=== PATIENT | male | born 1990 | race Caucasian/White ===

== ENCOUNTER 2021-01-15 23:37 | Emergency (ER) | payer OTHER, SELFPAY ==
[2021-01-15 23:38] VITALS: BP 131/43; PULSE 77; RESP 16; TEMP 36.6; O2SAT 97; BMI 24.3
--- NOTE | 2021-01-16 00:44 | ED.MALEGU ---
HPI - Male Genitourinary General Chief complaint: Urogenital-Female Stated complaint: etoh Time Seen by Provider: 01/16/21 00:44 Source: patient Mode of arrival: ambulatory History of Present Illness HPI Narrative: 30-year-old male who presents via EMS after he called at the behest of his . He states he drink 4 beers earlier in the evening and that he told his that he was having some difficulty with urination. Patient states that this has happened before and that it is ?no big deal?. He denies any penile discharge and continues to states that he does not think that is any big problem. He denies any fevers or chills. Related Data Allergies Allergy/AdvReac Type Severity Reaction Status Date / Time No Known Allergies Allergy Verified 01/15/21 23:40 Review of Systems Review of Systems: Urine positives and negatives as stated in HPI 10 point review systems is otherwise negative. PMFSH Past Medical History Source: nursing notes reviewed Medical History No active medical problems Social History Social History Advance Directives: No Advance Directives Information Provided: No Physical Exam Vital Signs: Vital Signs: Last Vital Signs Temp 97.9 F 01/15/21 23:38 Pulse 77 01/15/21 23:38 Resp 16 01/15/21 23:38 BP 131/43 L 01/15/21 23:38 Pulse Ox 97 01/15/21 23:38 Body Mass Index 24.3 VITAL SIGNS: Reviewed. GENERAL: Well developed, well nourished, in no acute distress. HEAD: Normocephalic/atraumatic EYES: PERRLA, EOMI OROPHARYNX: no oral lesions noted, posterior pharynx clear LUNGS: Normal breath sounds. SpO2<97> CARDIOVASCULAR: Regular rate and rhythm without noted murmurs ABDOMEN: Soft, non-tender, non-distended with bowel sounds. NEUROLOGIC: Alert and oriented x 4. Course Course Course Narrative: 30-year-old male with history and clinical presentation suggestive of UTI. Review of urinalysis negative for any acute findings and patient was discharged in stable condition. MDM - Male Genitourinary Lab Data Labs: Lab Results 01/16/21 Range/Units 01:01 Urine Color STRAW Urine Appearance CLEAR Urine pH 5.5 (5.0-8.0) Ur Specific [place] 1.010 (1.005-1.025) Urine Protein NEG (NEG-TRACE) MG/DL Urine Glucose (UA) NEG (NEG) MG/DL Urine Ketones NEG (NEG) MG/DL Urine Blood NEG (NEG) Urine Nitrite NEG (NEG) Ur Leukocyte Esterase NEG (NEG) Urine RBC 0 (0) /HPF Urine WBC 0-2 (0-4) /HPF Ur Squamous Epith Cells TRACE /LPF Urine Bacteria NONE /LPF Urine Mucus TRACE /LPF Discharge Plan Discharge Clinical Impression: Dysuria Patient Disposition: Home, Self-Care Instructions: Dysuria (ED) Additional Instructions: Follow-up with your primary care provider in 2-3 days for re-evaluation outpatient management of your symptoms. Do not hesitate to return to the emergency department should you develop acute worsening of your symptoms. Referrals: Gray Box, OPERATIONS AND INTELLIGENCE ASSISTANT[facility] [Primary Care Provider] - 2 days
[2021-01-16 01:14] LABS: Glucose Urine UA NEG (NEG); Leukocyte Esterase Urine NEG (NEG); Nitrite Urine NEG (NEG); PH 5.5 (5.0-8.0); Urine Blood NEG (NEG); Urine Ketones NEG (NEG); Urine Protein NEG (NEG-TRACE)
[2021-01-16 01:21] LABS: Appearance Urine CLEAR; Color Urine STRAW
[2021-01-16 01:22] LABS: Mucus Urine TRACE /LPF; RBC Urine 0 /HPF (0); Squamous Epithelial Cell Urine TRACE /LPF; WBC Urine 0-2 /HPF (0-4)
== END 2021-01-16 01:34 | disposition home or self-care (01) ==
PROVIDERS: Emergency Provider Student in an Organized Health Care Education/Training Program; PCP Nurse Practitioner Family
DX: R30.0 Dysuria (principal)
CPT/HCPCS: 81001; 99282; 99284

== ENCOUNTER 2021-02-09 07:31 | Outpatient (REF) | payer OTHER, SELFPAY ==
[2021-02-09 12:05] LABS: Ferritin 161 ng/mL (20-250); TSH reflex Free T4 2.26 uIU/mL (0.32-4.0)
[2021-02-09 12:09] LABS: Alanine Aminotransferase 29 U/L (0-40); Albumin Level 4.8 g/dL (3.5-5.0); Alkaline Phosphatase 83 U/L (39-117); Anion Gap 15 (12-20); Aspartate Amino Transferase 20 U/L (5-37); Bilirubin Total 0.6 mg/dL (0.0-1.0); Blood Urea Nitrogen 14 mg/dL (9-16); Calcium 9.6 mg/dL (8.4-10.2); Carbon Dioxide 25 mmol/L (22-29); Chloride 105 mmol/L (96-108); Cholesterol 191 mg/dL; Estimated Glomerular Filt Rate > 60; Glucose Fasting 84 mg/dL (60-99); HDL Cholesterol 48 mg/dL; LDL Cholesterol Calculated 114 mg/dl; Sodium 141 mmol/L (135-145); Total Protein 7.8 g/dL (6.5-8.0); Triglycerides 146 mg/dL
[2021-02-13 10:46] LABS: Testosterone, Total 437 ng/dL (250-1100)
== END 2021-02-09 07:32 | disposition home or self-care (01) ==
LOC: HO.HMGCLDS 07:31
PROVIDERS: PCP Nurse Practitioner Family; Visit Provider Nurse Practitioner Family
DX: Z00.00 Encounter for general adult medical examination without abnormal findings (principal); G25.81 Restless legs syndrome; F52.0 Hypoactive sexual desire disorder
CPT/HCPCS: 36415; 80053; 80061; 82728; 84403; 84443

== ENCOUNTER → 2021-04-13 08:40 | Outpatient (REF) | payer OTHER, SELFPAY ==
--- NOTE | 2021-04-13 08:44 | CA_ITS ---
Acquisition Time: 2021-04-13 08:47:43 Total Exercise Time: 00:13:49 Test Indications: Chest Pain Medications: NONE Protocol: PRESLEY Max HR: 190 BPM 99% of Pred: 191 BPM Max BP: 145/048 mmHG Max Work Load: 16.8 METS Exercise stress test with exercise 13 min 49 sec of Presley protocol, without anginal symptoms, without arrythmia, with normotensive response to exercise, without EKG changes meeting criteria for ischemia. Test reviewed with Dr Stark. Referred By: Gray Box Overread By: CATIE NAVARRO
== END ==
LOC: HO.CARD 08:40
PROVIDERS: Visit Provider Nurse Practitioner Family
DX: I20.8 Other forms of angina pectoris (principal)
CPT/HCPCS: 93017

== ENCOUNTER 2021-08-17 07:23 | Outpatient (REF) | payer OTHER, SELFPAY ==
[2021-08-17 11:45] LABS: Appearance Urine CLEAR; Color Urine YELLOW; Glucose Urine UA NEG (NEG); Leukocyte Esterase Urine NEG (NEG); Nitrite Urine NEG (NEG); Specific Gravity - Urine <= 1.005 (1.005-1.025); Urine Blood NEG (NEG); Urine Ketones NEG (NEG); Urine Protein NEG (NEG-TRACE)
[2021-08-17 12:11] LABS: RBC Urine 0-2 /HPF (0); WBC Urine 0 /HPF (0-4)
[2021-08-17 12:17] LABS: Alanine Aminotransferase 19 U/L (0-40); Albumin Level 4.6 g/dL (3.5-5.0); Alkaline Phosphatase 69 U/L (39-117); Anion Gap 14 (12-20); Aspartate Amino Transferase 14 U/L (5-37); Bilirubin Total 0.9 mg/dL (0.0-1.0); Blood Urea Nitrogen 14 mg/dL (9-16); Calcium 9.6 mg/dL (8.4-10.2); Carbon Dioxide 24 mmol/L (22-29); Chloride 105 mmol/L (96-108); Cholesterol 190 mg/dL; Estimated Glomerular Filt Rate > 60; Glucose Fasting 90 mg/dL (60-99); HDL Cholesterol 48 mg/dL; LDL Cholesterol Calculated 115 mg/dl; Potassium 3.9 mmol/L (3.3-5.1); Sodium 139 mmol/L (135-145); Total Protein 7.6 g/dL (6.5-8.0); Triglycerides 138 mg/dL
== END 2021-08-17 07:24 | disposition home or self-care (01) ==
LOC: HO.HMGCLDS 07:23
PROVIDERS: PCP Nurse Practitioner Family; Visit Provider Nurse Practitioner Family
DX: Z00.00 Encounter for general adult medical examination without abnormal findings (principal)
CPT/HCPCS: 36415; 80053; 80061; 81001; 84443

== ENCOUNTER 2021-10-06 06:36 | Outpatient (REF) | payer OTHER, SELFPAY ==
[2021-10-06 12:12] LABS: Appearance Urine CLEAR; Color Urine YELLOW; Glucose Urine UA NEG (NEG); Leukocyte Esterase Urine NEG (NEG); Nitrite Urine NEG (NEG); Urine Blood NEG (NEG); Urine Ketones NEG (NEG); Urine Protein NEG (NEG-TRACE)
[2021-10-06 12:28] LABS: RBC Urine 0 /HPF (0); Squamous Epithelial Cell Urine TRACE /LPF; WBC Urine 0-2 /HPF (0-4)
[2021-10-06 12:29] LABS: Bacteria Urine TRACE /LPF
[2021-10-08 08:18] LABS: HIV AB/AG Nonreactive (Nonreactive); HIV Num 1 0.08 S/CO (0.00-0.99)
== END 2021-10-06 06:37 | disposition home or self-care (01) ==
LOC: HO.HMGCLDS 06:36
PROVIDERS: PCP Nurse Practitioner Family; Visit Provider Nurse Practitioner Family
DX: Z00.00 Encounter for general adult medical examination without abnormal findings (principal); Z11.4 Encounter for screening for human immunodeficiency virus [HIV]
CPT/HCPCS: 36415; 81001; 81003; 87389

== ENCOUNTER 2021-10-06 10:01 | Outpatient (REF) | payer OTHER, SELFPAY ==
--- NOTE | 2021-10-06 11:17 | MHC.AU.ANR ---
Adult Audiological Evaluation Date of Visit: 10/06/21 Reason for Appointment: Patient arrives for audiological evaluation as part of a assessment. Patient has history of noise exposure. Ear History: Ear Deformity: None Reported Recent Ear Drainage: None Reported Recent Ear Pain: None Reported Family History of Hearing Loss?: Yes: Father Recent Ear Infections: None Reported Ear Infections in Childhood: None Reported History of Ear Wax Buildup: None Reported Previous Ear Surgery: None Reported Bothersome Tinnitus/Ringing/Noises in Ears: Both Ears Ear used on the phone: Right Ear Blocked/Full Sensation in Ear(s): None Reported History of occupational noise exposure?: Yes: [employer] for 9 years History: History: Yes Branch: [employer] Years in : 9 Years Medical History: Medical History: No major health concerns reported Medication List: Ropinirole Otoscopy: Right Ear: Unremarkable Left Ear: Unremarkable Tympanometry: Tympanometry performed due to: To assess integrity of the middle ear system Right Ear: Normal Middle Ear System (Type A) Left Ear: Normal Middle Ear System (Type A) Hearing Evaluation: Transducer(s) Used: Insert Earphones, Circumaural Headphones Method: Conventional Audiometry Stimuli Used: Pure Tones Right Ear: Description of Hearing: Normal from 250-3000 Hz, sloping to mild sensorineural hearing loss at 4000 and 6000 Hz, rising to normal at 8000 Hz Left Ear: Description of Hearing: Normal from 250-8000 Hz Speech Recognition Threshold (SRT): Method Used: Recorded Lists Stimuli Used: Spondee Words Right Ear: 10 dBHL Left Ear: 10 dBHL Word Discrimination: Method: Recorded Lists Word Lists Used: W-22 Right Ear: 96% at 50 dBHL Left Ear: 96% at 50 dBHL Interpretation of Results: Patient presents with normal hearing in the left ear. In the right ear, the hearing is mostly normal, with a mild sensorineural notch at 8577-3803 Hz in the right ear. Notches in that frequency range are often found in those with loud noise exposure. Recommendations: Audiological re-evaluation as needed. Diagnosis: Primary Diagnosis: H90.41 SNHL Right Ear, W/Unrestricted Contralateral Hearing Signature: Provider: Trace Cote, CCC-A
== END 2021-10-06 10:02 | disposition home or self-care (01) ==
LOC: HO.SH 10:01
PROVIDERS: Visit Provider Nurse Practitioner Family
DX: H90.41 Sensorineural hearing loss, unilateral, right ear, with unrestricted hearing on the contralateral side (principal)
CPT/HCPCS: 92557; 92567

== ENCOUNTER 2023-07-18 14:18 | Outpatient (AMB) | payer OTHER, SELFPAY ==
--- NOTE | 2023-07-18 14:20 | MHC.PC.OV ---
Vital Signs 07/18/23 14:24 Height 5 ft 8 in Weight 164 lb BMI 24.9 BP 110/72 Blood Pressure Location Rt brachial Position Sitting Pulse 89 Pulse Source Pulse Oximeter Pulse Oximetry (%) 98 Oxygen Delivery Method Room Air Intake Visit Reasons: PE for Allergies No Known Allergies Allergy (Verified 07/18/23 14:24) Medication List - Last Reconciled 07/18/23 by JOVANA Manuel escitalopram oxalate 10 mg PO DAILY Tobacco use date assessed: 07/18/23 Dental Screening Dental Screen Date: 07/18/23 Did you have a dental visit in the last 12 months?: Yes Did you have a dental problem in the last 6 months where you did not have access to dental care?: No Was dental information given to patient?: Patient has dentist HPI PE for HPI Details Pt is here for a PE. Will order labs. Pt recently had dental work done (root canal with ) so he was put on a pause of duty. He needs a signature from a medical provider to return to duty, will sign. [facility] Medical History Hearing loss, right No active medical problems Family History Father Hypertension High cholesterol Mother Mental health disorder Sister Mental health disorder Brother Mental health disorder Social History Housing: House Alcohol intake: current Alcohol intake frequency: a few times a week Alcohol type: beer Patient Tobacco Use Status: Former Tobacco user Years Smoked: ? e-Cigarette/Vaping Use: Former Use Second Hand Smoke Exposure: No service: Yes Current occupational status: employed Current occupation: [employer] Current occupational exposures/hazards: No Cognitive needs: No Hearing needs: No Vision needs: No Questionnaire PHQ-9 Over the last 2 weeks, how often have you been bothered by any of the following problems? 1. Little interest or pleasure in doing things: not at all 2. Feeling down, depressed, or hopeless: not at all 3. Trouble falling or staying asleep, or sleeping too much: not at all 4. Feeling tired or having little energy: not at all 5. Poor appetite or overeating: not at all 6. Feeling bad about yourself - or that you are a failure or have let yourself or your family down: not at all 7. Trouble concentrating on things, such as reading the newspaper or watching television: not at all 8. Moving or speaking so slowly that other people could have noticed. Or the opposite - being so fidgety or restless that you have been moving around a lot more than usual: not at all 9. Thoughts that you would be better off or of hurting yourself in some way: not at all Total score: 0 Depression Screening Interpretation: Negative Depression Screening Done: Yes 49388 - PHQ-9 Billing: Yes Source: Developed by Drs. Masoud Clayton, Moose Warren and colleagues, with an educational yelitza from [employer]. Thrive Questionnaire Date Thrive assessed: 07/12/22 AUDIT C Alcohol Use Questionnaire (AUDIT-C) 1. How often do you have a drink containing alcohol?: 2-3 times a week 2. How many drinks containing alcohol do you have on a typical day when you are drinking?: 1 or 2 3. How often do you have six or more drinks on one occasion?: Never Total Score: 3 Score Reviewed/Action Taken: Yes PEDRITO-7 AMB Questionnaire PEDRITO-7 Date PEDRITO - 7 assessed: 07/18/23 Feeling nervous, anxious, or on edge: 1 = Several days Not being able to stop or control worryin = Not at all Worrying too much about different things: 1 = Several days Trouble relaxin = Not at all Being so restless that it is hard to sit still: 0 = Not at all Becoming easily annoyed or irritable: 0 = Not at all Feeling afraid as if something awful might happen: 0 = Not at all Total PEDRITO-7 score (0-4 normal; 5-9 mild; 10-14 moderate; 15-21 severe): 2 Source: Developed by Drs. Masoud Clayton, Moose Warren and colleagues, with an educational yelitza from [employer]. PEDRITO-7 Assessment Billing PEDRITO-7 Assessment Tool: PEDRITO-7 Assessment 63252 Review of Systems Const Denies chills and Denies fever(s) Eyes Denies blurry vision ENT Denies vertigo, Denies dizziness and Denies sore throat Card Denies chest pain at rest, Denies chest pain with activity, Denies diaphoresis, Denies dyspnea and Denies dyspnea on exertion Resp Denies cough, Denies dyspnea, Denies dyspnea on exertion and Denies wheezing GI Denies abdominal pain, Denies melena, Denies hematochezia, Denies constipation, Denies diarrhea and Denies loose stools Denies hematuria Musc Denies numbness and Denies tingling Skin/Breast Denies lesions Neuro Denies vertigo, Denies dizziness, Denies numbness and Denies tingling Psych Denies anxiety, Denies depression, Denies homicidal ideation, Denies suicidal ideation and Denies other (substance abuse) Aller/Immun Denies wheezing Physical exam (Primary Care) Vital Signs: Last Vital Signs Pulse 89 07/18/23 14:24 BP 110/72 07/18/23 14:24 Pulse Ox 98 07/18/23 14:24 Oxygen Delivery Method Room Air 07/18/23 14:24 BMI result Body Mass Index 24.9 Tobacco/Smoking Status: Tobacco use Status Tobacco use date assessed 07/18/23 07/18/23 14:28 Patient Tobacco Use Status Former Tobacco user 07/18/23 14:20 e-Cigarette/Vaping Use Former Use 07/18/23 14:20 Depression Screening Interpretation: Negative Thrive Assessment: Date of Thrive Assessment Date Thrive assessed 07/12/22 07/18/23 14:20 Const General: cooperative Nutritional Appearance: well nourished Orientation/consciousness: patient oriented x3 HENMT Head: Yes normal to inspection, Yes normocephalic and Yes atraumatic Ears: TM's normal bilaterally Eyes General: appearance normal, both eyes and all related structures Alignment and Position: alignment normal and position normal Neck Neck: Yes normal visual inspection and Yes no lymphadenopathy Thyroid: Thyroid normal Resp Effort & Inspection: normal respiratory effort Auscultation: clear to auscultation bilaterally Cardio Rate: regular rate Rhythm: regular rhythm Heart sounds: S1 normal heart sound present, S2 normal heart sound present and no murmurs GI Palpation (GI): Soft to palpation and nontender Auscultation: normal bowel sounds Male General Exam: Yes normal external exam Penis: normal penis Scrotum: scrotum normal, testes descended bilaterally and no inguinal hernias Testes: no testicular mass Skin Rashes: no rashes Neuro General: patient oriented x3, moves all extremities, no focal motor deficits and deep tendon reflexes 2+ bilaterally Romberg Test: Negative Psych Appearance: grossly normal Mental Status: mental status grossly normal Speech and movement: Normal speech and movement present Affect: normal affect Attitude: cooperative Thought process: Normal thought process present Thought content: Normal thought content present Insight: Good insight present (Psych) Judgement: Good judgement present (Psych) Assessment and Plan Assessment & Plan (1) Physical exam: Code(s): Z00.00 - Encounter for general adult medical examination without abnormal findings Plan: Labs ordered Plan The patient agreed to the use of a medical assisting program director for this encounter. Scribed for JOVANA Perez by Mckenzie Marcelino medical assisting program director, on 07/18/2023 at 14:35 EST Orders: Orders Complete Blood Count Auto Diff Today Z00.00 - Encounter for general adult medical examination without abnormal findings Comprehensive Roxana. Panel Fast Today Z00.00 - Encounter for general adult medical examination without abnormal findings UA CC w/rflx Micro + Cult Today Z00.00 - Encounter for general adult medical examination without abnormal findings Lipid Panel Today Z00.00 - Encounter for general adult medical examination without abnormal findings TSH reflex Free T4 Today Z00.00 - Encounter for general adult medical examination without abnormal findings Coding Level of Care Code Est Pt Prev Care 18-39y(08414) Diagnoses Physical exam Z00.00 Additional Codes PEDRITO-7 Assessment Billing - PEDRITO-7 Assessment Tool: PEDRITO-7 Assessment [id number] ([id number])
[2023-07-18 14:24] VITALS: BP 110/72; PULSE 89; O2SAT 98; BMI 24.9
== END 2023-07-18 15:38 | disposition home or self-care (01) ==
PROVIDERS: PCP Nurse Practitioner Family; Visit Provider Nurse Practitioner Family
DX: Z00.00 Encounter for general adult medical examination without abnormal findings (principal)
CPT/HCPCS: 99395